=== PATIENT | male | born 1935 | race African-American/Black ===

== ENCOUNTER 2020-08-10 11:47 | Inpatient (IN) ==
[2020-08-10] MEDS ORDERED: GLUCAGON 1 MG VIAL IM PRN (15:24)
[2020-08-10] MEDS ORDERED: ONDANSETRON 4 MG/2 ML VIAL IV PRN (15:24)
[2020-08-10] MEDS ORDERED: hydrALAZINE 20 MG/1 ML VIAL IV PRN (15:24)
[2020-08-10] MEDS ORDERED: DEXTROSE 50% 25 GM/50 ML VIAL IV PRN (15:24)
[2020-08-10] MEDS ORDERED: ACETAMINOPHEN 325 MG TABLET PO PRN (15:24)
[2020-08-10] MEDS ORDERED: CIPROFLOXACIN INJ 400 MG in PREMIX 1 EACH IV SCH (16:00)
[2020-08-10 16:47] LABS: Calcium 8.9 MG/DL (8.5-10.1); Osmolality,Calculated 276.1 MOS/KG (273-304); Potassium 4.6 MMOL/L (3.5-5.1)
[2020-08-10 17:02] LABS: Risk Ratio 2.37; Thyroid Stimulating Hormone 2.12 uIU/ml (0.358-3.74); VLDL CHOLESTEROL 17.2 MG/DL
[2020-08-10] MEDS: SODIUM POLYSTYRENE SULFATE 15 GM/60 ML BOTTLE PO SCH ×2 (17:26→23:31)
[2020-08-10 17:53] LABS: Bacteria,Urine Occasional /HPF (Few); Bilirubin,Urine Negative (Negative); Blood, Urine Large mg/dL (Negative); Glucose,Urine (UA) Negative (Negative); Hyaline Casts,Urine 18 /LPF (0-3); Ketones,Urine Negative (Negative); Mucus,Urine Occasional /LPF (Occasional); Nitrite,Urine Negative (Negative); Protein,Urine 100 MG/DL; RBC,Urine 220 /HPF (0-4); Squamous Epithelial Cell,Urine Occasional /HPF (0-10); Urine Appearance Slightly Hazy (Clear); Urine Color Yellow (Yellow); Urine Specific Gravity 1.014 (1.001-1.035); WBC,Urine 6 /HPF (0-6)
[2020-08-10] MEDS: SIMVASTATIN 10 MG TABLET PO SCH (20:58)
[2020-08-10] MEDS: TAMSULOSIN 0.4 MG CAPSULE PO SCH (20:58)
[2020-08-10] MEDS: GABAPENTIN 300 MG CAPSULE PO SCH (20:58)
[2020-08-10] MEDS: CARBIDOPA/LEVODOPA 25-100 MG TABLET PO SCH (20:58)
[2020-08-10] MEDS: BRIMONIDINE/TIMOLOL OPH SOLN 5 ML BOTTLE BOTH EYES SCH ×2 (20:59→21:07)
[2020-08-10] MEDS ORDERED: ENOXAPARIN 30 MG/0.3 ML SYRINGE SUBCUT SCH (21:00)
[2020-08-10] MEDS: TRAVOPROST 0.004% OPH SOLN 2.5 ML BOTTLE BOTH EYES SCH (21:07)
[2020-08-11 06:12] LABS: Basophils # 0.1 10*3/uL (0.0-0.2); Basophils % 0.5 % (0.0-0.8); Eosinophils # 0.4 10*3/uL (0.0-0.87); Eosinophils % 4.4 % (0.00-10.9); Hematocrit 36.1 VOL% (42.0-52.0); Hemoglobin 11.5 GM/DL (14.0-18.0); Immature Granulocytes % 0.3 %; Immature Granulocytes Absolute 0.03 #; Lymphocytes # 1.7 10*3/uL (1.4-4.0); Lymphocytes % 17.5 % (21.2-54.2); Mean Corpuscular HGB Conc 31.9 GM/DL (32-36); Mean Corpuscular Volume 91.4 FL (87-102); Mean Platelet Volume 10.9 FL (9.6-12.0); Monocytes % 8.8 % (1.7-12.7); Neutrophils % 68.5 % (38.7-73.9); Platelet Count 177 T/CUMM (130-400); Red Blood Count 3.95 MC/CUMM (3.8-5.5); Red Cell Distribution Width 13.1 % (9.3-17.3); White Blood Count 9.6 T/CUMM (4-12)
[2020-08-11 06:20] LABS: Calcium 8.6 MG/DL (8.5-10.1); Osmolality,Calculated 285.4 MOS/KG (273-304)
[2020-08-11 07:15] LABS: Hypochromasia 1+; Microcytosis 1+; Platelet Estimate Adequate
[2020-08-11] MEDS: SODIUM POLYSTYRENE SULFATE 15 GM/60 ML BOTTLE PO SCH ×2 (08:42→15:33)
[2020-08-11] MEDS: CARBIDOPA/LEVODOPA 25-100 MG TABLET PO SCH ×3 (09:17→21:29)
[2020-08-11] MEDS: TAMSULOSIN 0.4 MG CAPSULE PO SCH ×2 (09:17→21:29)
[2020-08-11] MEDS: DONEPEZIL 10 MG TABLET PO SCH (09:17)
[2020-08-11] MEDS: BRIMONIDINE/TIMOLOL OPH SOLN 5 ML BOTTLE BOTH EYES SCH ×3 (09:17→21:35)
[2020-08-11] MEDS: allopurinoL 300 MG TABLET PO SCH (09:17)
[2020-08-11] MEDS: SODIUM CHLORIDE 0.9% 1,000 ML IV SCH (14:31)
[2020-08-11] MEDS: GABAPENTIN 300 MG CAPSULE PO SCH (21:29)
[2020-08-11] MEDS: SIMVASTATIN 10 MG TABLET PO SCH (21:30)
[2020-08-11] MEDS: TRAVOPROST 0.004% OPH SOLN 2.5 ML BOTTLE BOTH EYES SCH (21:30)
[2020-08-12] MEDS: SODIUM POLYSTYRENE SULFATE 15 GM/60 ML BOTTLE PO SCH ×2 (01:06→07:55)
[2020-08-12] MEDS: CIPROFLOXACIN INJ 400 MG in PREMIX 1 EACH IV SCH ×2 (03:22→15:47)
[2020-08-12] MEDS: SODIUM CHLORIDE 0.9% 1,000 ML IV SCH (05:07)
[2020-08-12 06:34] LABS: Basophils # 0.1 10*3/uL (0.0-0.2); Basophils % 0.7 % (0.0-0.8); Eosinophils # 0.5 10*3/uL (0.0-0.87); Eosinophils % 5.1 % (0.00-10.9); Hematocrit 32.6 VOL% (42.0-52.0); Hemoglobin 10.4 GM/DL (14.0-18.0); Immature Granulocytes % 0.5 %; Immature Granulocytes Absolute 0.04 #; Lymphocytes % 22.9 % (21.2-54.2); Mean Corpuscular HGB Conc 31.9 GM/DL (32-36); Mean Corpuscular Volume 91.3 FL (87-102); Mean Platelet Volume 10.9 FL (9.6-12.0); Monocytes % 8.6 % (1.7-12.7); Neutrophils % 62.2 % (38.7-73.9); Platelet Count 158 T/CUMM (130-400); Red Blood Count 3.57 MC/CUMM (3.8-5.5); Red Cell Distribution Width 13.1 % (9.3-17.3); White Blood Count 8.8 T/CUMM (4-12)
[2020-08-12 06:38] LABS: Calcium 8.4 MG/DL (8.5-10.1); Osmolality,Calculated 281.5 MOS/KG (273-304); Potassium 3.8 MMOL/L (3.5-5.1)
[2020-08-12] MEDS: CARBIDOPA/LEVODOPA 25-100 MG TABLET PO SCH ×3 (09:38→21:11)
[2020-08-12] MEDS: TAMSULOSIN 0.4 MG CAPSULE PO SCH ×2 (09:38→21:11)
[2020-08-12] MEDS: DONEPEZIL 10 MG TABLET PO SCH (09:38)
[2020-08-12] MEDS: allopurinoL 300 MG TABLET PO SCH (09:38)
[2020-08-12] MEDS: BRIMONIDINE/TIMOLOL OPH SOLN 5 ML BOTTLE BOTH EYES SCH ×2 (09:52→21:23)
[2020-08-12] MEDS: POTASSIUM CHLORIDE INJ 30 MEQ in SODIUM CHLORIDE 0.9% 1,000 ML IV SCH (11:31)
[2020-08-12] MEDS: SIMVASTATIN 10 MG TABLET PO SCH (21:11)
[2020-08-12] MEDS: GABAPENTIN 300 MG CAPSULE PO SCH (21:11)
[2020-08-12] MEDS: TRAVOPROST 0.004% OPH SOLN 2.5 ML BOTTLE BOTH EYES SCH (21:13)
[2020-08-13] MEDS: POTASSIUM CHLORIDE INJ 30 MEQ in SODIUM CHLORIDE 0.9% 1,000 ML IV SCH
[2020-08-13] MEDS ORDERED: cefTRIAXone 1,000 MG in SYRINGE 1 EACH IV ONE (00:01)
[2020-08-13] MEDS: CIPROFLOXACIN INJ 400 MG in PREMIX 1 EACH IV SCH ×2 (05:00→16:31)
[2020-08-13 06:56] LABS: Basophils # 0.1 10*3/uL (0.0-0.2); Basophils % 0.7 % (0.0-0.8); Eosinophils # 0.5 10*3/uL (0.0-0.87); Eosinophils % 5.3 % (0.00-10.9); Hematocrit 35.4 VOL% (42.0-52.0); Hemoglobin 11.2 GM/DL (14.0-18.0); Immature Granulocytes % 0.4 %; Immature Granulocytes Absolute 0.03 #; Lymphocytes # 1.7 10*3/uL (1.4-4.0); Lymphocytes % 20.1 % (21.2-54.2); Mean Corpuscular HGB Conc 31.6 GM/DL (32-36); Mean Platelet Volume 10.4 FL (9.6-12.0); Monocytes % 8.8 % (1.7-12.7); Neutrophils % 64.7 % (38.7-73.9); Platelet Count 194 T/CUMM (130-400); Red Blood Count 3.89 MC/CUMM (3.8-5.5); Red Cell Distribution Width 12.8 % (9.3-17.3); White Blood Count 8.5 T/CUMM (4-12)
[2020-08-13 07:19] LABS: Calcium 8.9 MG/DL (8.5-10.1); Osmolality,Calculated 278.5 MOS/KG (273-304); Potassium 4.2 MMOL/L (3.5-5.1)
[2020-08-13] MEDS ORDERED: LIDOCAINE 2% 5 ML VIAL ONE (07:59)
[2020-08-13] MEDS ORDERED: fentaNYL 100 MCG/2 ML VIAL ONE (07:59)
[2020-08-13] MEDS ORDERED: propofoL 200 MG/20 ML VIAL IV ONE (07:59)
[2020-08-13] MEDS ORDERED: ROCURONIUM 50 MG/5 ML VIAL IV ONE (07:59)
[2020-08-13] MEDS ORDERED: SUCCINYLCHOLINE 200 MG/10 ML VIAL ONE ×2 (07:59→08:02)
[2020-08-13] MEDS ORDERED: ETOMIDATE 40 MG/20 ML VIAL IV ONE (08:01)
[2020-08-13] MEDS ORDERED: PHENYLEPHRINE 1 MG/10 ML SYRINGE IV ONE (08:14)
[2020-08-13] MEDS ORDERED: ePHEDrine 50 MG/ML VIAL ONE (08:20)
[2020-08-13] MEDS: allopurinoL 300 MG TABLET PO SCH (11:02)
[2020-08-13] MEDS: BRIMONIDINE/TIMOLOL OPH SOLN 5 ML BOTTLE BOTH EYES SCH ×2 (11:03→22:00)
[2020-08-13] MEDS: DONEPEZIL 10 MG TABLET PO SCH (11:03)
[2020-08-13] MEDS: TAMSULOSIN 0.4 MG CAPSULE PO SCH ×2 (11:03→22:00)
[2020-08-13] MEDS: CARBIDOPA/LEVODOPA 25-100 MG TABLET PO SCH ×3 (11:03→22:00)
[2020-08-13] MEDS: SIMVASTATIN 10 MG TABLET PO SCH (22:00)
[2020-08-13] MEDS: GABAPENTIN 300 MG CAPSULE PO SCH (22:00)
[2020-08-13] MEDS: TRAVOPROST 0.004% OPH SOLN 2.5 ML BOTTLE BOTH EYES SCH (23:00)
[2020-08-14] MEDS: CIPROFLOXACIN INJ 400 MG in PREMIX 1 EACH IV SCH (03:26)
[2020-08-14] MEDS: TAMSULOSIN 0.4 MG CAPSULE PO SCH (09:38)
[2020-08-14] MEDS: DONEPEZIL 10 MG TABLET PO SCH (09:38)
[2020-08-14] MEDS: CARBIDOPA/LEVODOPA 25-100 MG TABLET PO SCH (09:38)
[2020-08-14] MEDS: allopurinoL 300 MG TABLET PO SCH (09:39)
[2020-08-14] MEDS: BRIMONIDINE/TIMOLOL OPH SOLN 5 ML BOTTLE BOTH EYES SCH (09:42)
[2020-08-14 12:15] VITALS: BP 120/78
== END 2020-08-14 13:15 | disposition home or self-care (01) | DRG 694 ==
LOC: N.3E 14:22
PROVIDERS: ADMIT Internal Medicine; ATTEND Internal Medicine